=== PATIENT | female | born 1970 | race Caucasian/White ===

== ENCOUNTER 2020-07-04 07:23 | Day surgery (SDC) | payer BC ==
[2020-07-04] MEDS ORDERED: Midazolam 1 MG/ML 2 ML SDV IV ONE (07:24)
[2020-07-04] MEDS ORDERED: Propofol 200 MG/20 ML SDV IV ONE (07:24)
[2020-07-04] MEDS ORDERED: Sodium Chloride 0.9% 10 ML Syringe FLUSH PRN (08:00)
[2020-07-04] MEDS ORDERED: Lactated Ringers 1,000 ML IV SCH (08:00)
--- NOTE | 2020-07-04 10:47 | PCM.OPNOTE ---
- General Post-Op/Procedure Note Date of Surgery/Procedure: 07/04/20 Operative Procedure(s): c scope with cold forcep biopsy Findings: sigmoid colon polyp x2 Pre Op Diagnosis: screening Post-Op Diagnosis: sigmoid colon polyp x2 Anesthesia Technique: MAC Primary Surgeon: Francisco Javier Rodriguez Anesthesia Provider: Hiwot Pina Pathology: sigmoid colon polyp x2 Complications: None Condition: Good Free Text/Narrative:: see dictation
--- NOTE | 2020-07-04 13:11 | OR ---
DATE OF OPERATION: 07/04/2020 SURGEON: Francisco Javier Rodriguez MD PROCEDURE PERFORMED: Colonoscopy with cold forceps biopsy. PREOPERATIVE DIAGNOSIS: Need for colon cancer screening. POSTOPERATIVE DIAGNOSIS: Sigmoid colon polyps x2. INDICATIONS FOR PROCEDURE: This is a 50-year-old white female who presents for screening colonoscopy. She was offered and accepted the same. DESCRIPTION OF PROCEDURE: After an excellent IV sedation was administered, a digital rectal exam was performed. No marked abnormality was noted. The flexible colonoscope was inserted and advanced to the cecum. The prep was excellent. The following findings were noted: Ascending colon unremarkable. Transverse colon unremarkable. Descending colon unremarkable. Sigmoid: Two small hyperplastic-appearing lesions measuring approximately 3 mm each were encountered. These were biopsied and submitted in 1 container, and they were completely obliterated with the cold biopsy forceps. Rectum and anus unremarkable. The patient tolerated the procedure well. Results will be sent to the patient via a letter. /[id number] /[id number]
== END 2020-07-04 10:52 | disposition home or self-care (01) ==
LOC: FB.SDS 07:23
PROVIDERS: ATTEND Surgery
DX: Z12.11 Encounter for screening for malignant neoplasm of colon (principal); K63.5 Polyp of colon; K21.9 Gastro-esophageal reflux disease without esophagitis; J45.909 Unspecified asthma, uncomplicated; Z98.890 Other specified postprocedural states; Z79.899 Other long term (current) drug therapy; Z88.5 Allergy status to narcotic agent; Z87.891 Personal history of nicotine dependence
CPT/HCPCS: 00812-QZ; 88305; J2250; J2704; J7120